=== PATIENT | female | born 1960 | race Caucasian/White ===

== ENCOUNTER 2018-01-05 06:43 | Day surgery (SDC) ==
[2018-01-05] MEDS ORDERED: LIDOCAINE 1% 20 ML MDV ID STA (07:28)
[2018-01-05] MEDS ORDERED: DIPRIVAN 20 ML VIAL IVP ONE (08:00)
[2018-01-05] MEDS ORDERED: VERSED ONE (08:00)
[2018-01-05 09:30] VITALS: BP 136/78; TEMP 97.7
--- NOTE | 2018-01-06 09:37 | OP ---
PROCEDURE: COLONOSCOPY TO THE CECUM. ENDOSCOPIST: Artem MATA M.D. INDICATION: ANEMIA, NO PRIOR EXAMINATION. INSTRUMENT: [id number]. MEDICATION: PER ANESTHESIA. PROCEDURE: The patient was positioned for colonoscopy. The digital rectal exam was negative. The colonoscope was inserted through the anus and advanced to the cecum. The cecum was identified using the ileocecal valve and the appendiceal orifice as landmarks. The scope was slowly withdrawn through an adequately prepped colon. [place] Bowel Preparation Score of 9. The examination was normal throughout. The retroflex exam was normal. The patient tolerated the procedure without immediate complication. Withdrawal time 9 minutes, 18 seconds. PLAN: 1. Repeat colonoscopy in 10 years, sooner if symptoms warrant or other indication. CC: DR. PIPPA DEMPSEY
== END 2018-01-05 09:00 | disposition home or self-care (01) ==
LOC: SURG 06:43
PROVIDERS: ATTEND Internal Medicine Gastroenterology
DX: D64.9 Anemia, unspecified (principal)

== ENCOUNTER → 2018-05-28 | Outpatient (REF) | LOC: LAB 09:07 | DX: Z02.89 Encounter for other administrative examinations (principal) | CPT/HCPCS: 36415; 80053; 80061; 83036; 83540; 84100; 84550; 85025; 86140 ==